=== PATIENT | male | born 1950 | race Two or more races ===

== ENCOUNTER 2019-06-07 21:16 | Emergency (ER) | payer MEDICARE, OTHER ==
[~2019-06-07] VITALS: Ht 165.1 cm; Wt 31.8 kg
[~2019-06-07 21:16] MED LIST: ANTIVERT25 MG ORAL; IBUPROFEN600 MG ORAL; NKM; NORCO 5-325 TA1 EACH ORAL
[2019-06-07 21:35] VITALS: BP 146/88
--- NOTE | 2019-06-07 21:35 | NUR ---
ED Nurse Note: Pt walked in to ED from home c/o right lower jaw pain/ tooth pain x1 day ago. Pt stated he was eating and pain occured. Afebrile. Not in any distress. VSS. [place] at bedside.
[2019-06-07] MEDS ORDERED: IBUPROFEN600 MG ORAL (21:45)
[2019-06-07] MEDS ORDERED: NORCO 5-325 TA1 EACH ORAL (21:45)
[2019-06-07] MEDS ORDERED: HYDROcodone/Acetamin 7.5/325 tab ORAL ONE (21:45)
--- NOTE | 2019-06-07 21:46 | Emergency Room Report ---
History of Present Illness General Chief Complaint: Toothache Source: Patient Present Illness HPI Disclaimer: Please note that this report is being documented using [employer] technology. This can lead to erroneous entry secondary to incorrect interpretation by the dictating instrument. HPI: 68-year-old male presents for evaluation of toothache. Patient has a history of multiple tooth fractures and poor dentition. He was scheduled to have multiple teeth extracted though he has been postponing this. He has complaint of worsening pain for 2 days after biting into something while eating. Pain is worse in the right lower jaw. Does not radiate. Has had a problem with those teeth in the past. Denies any other facial trauma. 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 He does not live in the area and is visiting his daughter currently. Prior history of dental abscesses. PMH: Hypertension, heart disease, mouth cancer PSH: Mandible tumor resection Allergies: Penicillin Allergies: Coded Allergies: PENICILLINS (Verified Allergy, Unknown, 06/07/19) Nursing Documentation-PMH Hx Pacemaker: Yes - raquel in nov 2013 Review of Systems All Other Systems: negative except mentioned in HPI Physical Exam Vital Signs Date Time Temp Pulse Resp B/P (MAP) Pulse Ox O2 Delivery O2 Flow Rate FiO2 06/07/19 21:26 98.1 62 16 146/88 (107) 97 Room Air General: Awake and alert, no acute distress HEENT: NC/AT. EOMI. multiple tooth fractures and evidence of decay. There is tenderness palpation over tooth #26 and some gingival edema. No overlying abscess or purulence noted. Multiple missing teeth otherwise. Worsening of the lower lip surgically removed. Resp: Normal work of breathing Skin: Intact. No abrasions, laceration or rash over the exposed skin MSK: Normal tone and bulk. Moving all extremities. No obvious deformity. Neuro: Awake and alert. Mentating appropriately Medical Decision Making Diagnostic Impression: Primary Impression: Tooth fracture ER Course This is a 68-year-old male presenting for evaluation of tooth pain. Differential includes was not limited to fracture, infection, periapical abscess , gingivitis. Patient has multiple fractured teeth likely source of infection. He will require antibiotics and will prescribe pain medication as well. He needs to follow-up with dentistry for tooth extraction soon as possible. Provided names of some dental clinics in the area. Can return to the emergency department new or worsening symptoms. Last Vital Signs Date Time Temp Pulse Resp B/P (MAP) Pulse Ox O2 Delivery O2 Flow Rate FiO2 06/07/19 21:26 98.1 62 16 146/88 (107) 97 Room Air Disposition: HOME, SELF-CARE Condition: Stable Scripts Clindamycin Hcl* (CLINDAMYCIN HCL*) 150 Mg Capsule 450 MG ORAL TID for 7 Days, #63 CAP Prov: Vivek Preston MD 06/07/19 Hydrocodone Bit/Acetaminophen 5-325* (NORCO 5-325*) 1 Each Tablet 1 TAB ORAL Q6H PRN for For Pain, #10 TAB 0 Refills Prov: Vivek Preston MD 06/07/19 Ibuprofen* (MOTRIN*) 600 Mg Tablet 600 MG ORAL Q8H PRN for For Pain, #30 TAB Prov: Vivek Preston MD 06/07/19 Referrals: [facility](age 2-12) - Orthodontic Clinic - Hours: Sun,Sun,, 8:15am and 1pm (new patient screening), Tu. 1pm. Emergency clinic Sunday - Sunday 8:30am and 1pm, Tues. 1pm. *Call to check if clinic is open; No appointment necessary for the first visit ( new patient screening), Arrive 15-30 minutes early as it is first come, first serve. [facility] P[facility] Location: 2nd Floor Room [address] INFO: Sun & Sun-8:30am-4:30pm, - 8:30am - 7pm, - Emergency only, Sun- 8:30am-11:30am and afternoon emergency only [facility] INFO: New Patient Screening: Sun- 8am-1pm Sun- 9am -5pm and Sun 2pm-5pm Patient Instructions: Dental Pain Additional Instructions: Please follow-up with a dentist as quickly as possible for tooth removal. Take antibiotics as prescribed. Use the pain medication as prescribed. Please follow-up with your primary care doctor in the next 1 to 3 days to discuss this emergency department visit and for reevaluation. If you have any new or worsening symptoms please return to the emergency department for reevaluation. Please note that this report is being documented using [employer] technology. This can lead to erroneous entry secondary to incorrect interpretation by the dictating instrument. Vivek Preston MD Jun 07, 2019 21:46
[2019-06-07] MEDS ORDERED: CLINDAMYCIN HC150 MG ORAL (22:00)
[2019-06-07 22:01] VITALS: BP 146/88
--- NOTE | 2019-06-07 22:01 | NUR ---
ED Nurse Note: Pt cleared by ERMD for discharge. DC instructions/prescription was given and explained to pt and daughter verbalized understanding of teachings. All medical deviecs such as ID band removed. Pt is AAO x4, ambulatory and left with all personal belongings. Accompanied by his daughter.
== END 2019-06-07 22:01 | disposition home or self-care (01) ==
LOC: EMR 21:40
DX: S02.5XXA Fracture of tooth (traumatic), initial encounter for closed fracture (principal); Z88.0 Allergy status to penicillin; Z95.0 Presence of cardiac pacemaker
CPT/HCPCS: 99282